=== PATIENT | female | born 1945 | race Caucasian/White ===

== ENCOUNTER → 2018-02-08 17:06 | Outpatient (CLI) | payer OTHER, SELFPAY ==
--- NOTE | 2018-02-08 17:15 | DI.MRI.S_ITS ---
PROCEDURE: MR KNEE LT WO CON INDICATIONS: LT KNEE INTERNAL DERANGEMENT TECHNIQUE: Noncontrast sagittal PD fast spin echo and T2 fast spin echo with fat saturation, sagittal 3-D FLASH with fat saturation; coronal T1 spin echo and PD fast spin echo with fat saturation, and axial PD fast spin echo with fat saturation through the knee. COMPARISON: None. FINDINGS: Image quality: Diagnostic. Bones and joint: There is no acute fracture or dislocation. No suspicious osseous lesions are evident. There is a moderate size knee joint effusion with an associated very large Jones's cyst. Debris within the Jones's cyst is identified containing multiple joint bodies with the largest measuring up to approximately 8 mm in dimension. There are moderate to severe degenerative changes of the right knee, most pronounced within the medial compartment with extensive large chronic appearing full-thickness defects of the hyaline articular cartilage and irregularity of the chondral surfaces. Developing marginal osteophytes are noted within all 3 compartments as well as within the femoral notch. Irregularity and heterogeneity of the head articular cartilage within the patellofemoral and lateral compartments also is present. Cruciate ligaments: Only a small portion of the anterior cruciate ligament appears to remain intact. The majority of this ligament appears to be completely torn. The posterior cruciate ligament is intact. Menisci: There is a complex tear involving the body and posterior horn of the medial meniscus is partial thickness tear involving the posterior meniscal root. There is moderate grade partial-thickness tearing involving the anterior and posterior roots of the lateral meniscus with fraying along the free edge of the anterior horn. Medial structures: The medial collateral ligament appears intact. Slight thinning of this ligament may be related to a previous injury. The semimembranosus tendon insertion is intact. The imaged portions of the pes anserinus tendons are unremarkable. No significant fluid is contained within the pes anserinus bursa. Lateral structures: The popliteal tendon is intact. The lateral collateral ligament proper (fibular collateral ligament) and the proximal tibiofibular ligaments are intact. The distal aspect of the biceps femoris tendon and the iliotibial band are intact. Anterior structures: The quadriceps and patellar tendons are intact. There is mild edema within the infrapatellar fat pad. IMPRESSION: 1. Moderate to severe degenerative changes of the knee are most pronounced within the medial compartment. 2. Complex tearing of the medial meniscus. 3. High-grade partial-thickness tear of the anterior cruciate ligament. 4. Moderate knee joint effusion with an associated large Jones cyst, containing multiple intra-articular joint bodies. 5. Partial-thickness tearing of the lateral meniscus as described. Dictated by: Aaron Alberto M.D. on 02/09/2018 at 8:57 Approved by: Aaron Alberto M.D. on 02/09/2018 at 9:06
== END ==
PROVIDERS: Family Provider Physician Assistant Medical; PCP Physician Assistant Medical; Visit Provider Orthopaedic Surgery
DX: M23.92 Unspecified internal derangement of left knee (principal); M17.12 Unilateral primary osteoarthritis, left knee; S83.242A Other tear of medial meniscus, current injury, left knee, initial encounter; S83.282A Other tear of lateral meniscus, current injury, left knee, initial encounter; M25.462 Effusion, left knee; M71.22 Synovial cyst of popliteal space [Baker], left knee
CPT/HCPCS: 73721

== ENCOUNTER → 2021-09-11 10:00 | Outpatient (CLI) | payer OTHER, SELFPAY ==
--- NOTE | 2021-09-11 | DI.CT.S_ITS ---
PROCEDURE: CT UE RT WO CON INDICATIONS: RIGHT DISTAL RADIUS FRACTURE TECHNIQUE: Noncontrast 1 mm axial sections acquired through the carpal bones, with coronal and sagittal reformats. COMPARISON: Outside Film, CR, XR WRIST 1 OR 2 VIEWS RIGHT, 09/04/2021, 14:17. FINDINGS: Image quality: Excellent. Bones: Comminuted fracture of the distal radius which extends to the articular surface. Mildly displaced fracture of the ulnar styloid. Minimal displaced fracture with fibrocystic change of the lunate. No overt callus formation is appreciated. The remaining visualized osseous structures appear maintained with background osteoarthrosis . Soft tissues: Edema about the fracture sites. IMPRESSION: Fractures of the radius, lunate, and ulnar styloid as detailed above. Dictated by: Sunday Castro M.D. on 09/11/2021 at 13:25 Approved by: Sunday Castro M.D. on 09/11/2021 at 13:28
== END ==
PROVIDERS: Family Provider Physician Assistant Medical; PCP Registered Nurse; Referring Provider Physician Assistant Medical; Visit Provider Physician Assistant Medical
DX: S52.571A Other intraarticular fracture of lower end of right radius, initial encounter for closed fracture (principal); S52.611A Displaced fracture of right ulna styloid process, initial encounter for closed fracture; S62.121A Displaced fracture of lunate [semilunar], right wrist, initial encounter for closed fracture; X58.XXXA Exposure to other specified factors, initial encounter
CPT/HCPCS: 73200